=== PATIENT | male | born 1980 | race Caucasian/White ===

== ENCOUNTER 2021-08-14 10:36 | Emergency (ER) | payer OTHER, SELFPAY ==
--- NOTE | ~2021-08-14 | CT_ITS ---
EXAMINATION: CT ABDOMEN AND PELVIS WITH CONTRAST CLINICAL INFORMATION: Abdominal pain COMPARISON: CT abdomen pelvis 11/19/2018 TECHNIQUE: Multidetector volumetric images were obtained from the superior aspect of the liver through the pubic symphysis following administration 85 mL of Omnipaque 350 intravenous contrast. Sagittal and coronal reformatted images were obtained on the technologist's workstation. Oral contrast: No This CT examination was performed using dose optimization techniques as appropriate, variously including the following: *Automated exposure control *Adjustment of mA and/or kV according to patient size (this includes techniques or standardized protocols for targeted exams where dose is matched to indication/reason for exam; i.e. extremities or head) *Use of iterative reconstruction technique DLP: 779 mGy-cm FINDINGS: LUNG BASES: The visualized lung bases are unremarkable. LIVER, GALLBLADDER, AND BILIARY TREE: The liver is normal in size, shape, and attenuation. No focal hepatic lesion or biliary ductal dilatation is present. The gallbladder is unremarkable with no evidence of radiopaque gallstones, gallbladder wall thickening, or obvious pericholecystic inflammatory changes. PANCREAS: Unremarkable. SPLEEN: Unremarkable. ADRENAL GLANDS: Unremarkable. KIDNEYS AND URETERS: The kidneys are normal in size, shape, and attenuation. No hydronephrosis, hydroureter, or calculi seen. No perinephric stranding. BLADDER: Unremarkable. GASTROINTESTINAL TRACT: Diverticular changes are present in the colon. In the distal descending colon, there is some very subtle changes of inflammation surrounding the colon in an area of diverticular change with thickening of the lateral conal fascia and anterior pararenal fascia. These findings are suggestive of extremely subtle early uncomplicated diverticulitis. The small and large bowel are otherwise unremarkable. The appendix is unremarkable. ABDOMINAL WALL: No significant hernia is appreciated. LYMPH NODES: Normal. VASCULAR: Unremarkable. PELVIC VISCERA: Unremarkable. OSSEOUS STRUCTURES: Unremarkable. CT/CT abdomen pelvis w con IMPRESSION: Subtle changes of acute uncomplicated diverticulitis in the distal descending colon Fleischner guidelines were followed.
[2021-08-14 11:49] VITALS: BP 120/82; PULSE 91; RESP 18; TEMP 36.6; O2SAT 98; BMI 19.7
[2021-08-14 12:02] LABS: MANUAL DIFF FLAG NO
[2021-08-14 12:03] LABS: Basophils Absolute Auto 0.1 X10*3/uL (0.0-0.2); Basophils Percent Auto 0.5 % (0-2); Eosinophils Absolute Auto 0.2 X10*3/uL (0.0-0.4); Eosinophils Percent Auto 2.1 % (0-4); Hematocrit 42.4 % (42.0-52.0); Hemoglobin 14.2 g/dl (14.0-18.0); Imm Gran Abs Auto 0.02 X10*3/uL (0.00-0.03); Imm Gran Pct Auto 0.2 % (0.0-0.4); Lymphocytes Absolute Auto 2.6 X10*3/uL (1.2-4.9); Lymphocytes Percent Auto 23.4 % (20-40); Mean Corpuscular HGB Conc 33.5 g/dl (31.0-36.0); Mean Corpuscular Hemoglobin 30.9 pg (27.0-33.0); Mean Corpuscular Volume 92.4 fL (80.0-98.0); Mean Platelet Volume 9.4 fL (9.4-12.4); Monocytes Absolute Auto 0.8 X10*3/uL (0.1-1.2); Monocytes Percent Auto 7.4 % (2-11); Neutrophils Absolute Auto 7.2 x10*3/uL (2.0-8.3); Neutrophils Percent Auto 66.4 % (45-73); Platelet Count 275 X10*3/uL (160-400); Red Blood Count 4.59 X10*6/uL (4.60-5.80); Red Cell Distribution Width 13.9 % (11.0-16.0); White Blood Count 10.9 X10*3/uL (4.8-10.8)
[2021-08-14 12:05] LABS: Appearance Urine CLEAR; Color Urine YELLOW; Glucose Urine UA NEG (NEG); Leukocyte Esterase Urine NEG (NEG); Nitrite Urine NEG (NEG); Specific Gravity - Urine 1.025 (1.005-1.025); Urine Blood NEG (NEG); Urine Ketones NEG (NEG); Urine Protein TRACE MG/DL (NEG-TRACE)
[2021-08-14 12:19] LABS: Anion Gap 12 (12-20); Blood Urea Nitrogen 18 mg/dL (9-16); Calcium 9.3 mg/dL (8.4-10.2); Carbon Dioxide 25 mmol/L (22-29); Chloride 104 mmol/L (96-108); Creatinine Clr Calc Pharmacy 72.1; Estimated Glomerular Filt Rate 57; Glucose Random 133 mg/dL (60-115); Potassium 4.2 mmol/L (3.3-5.1); Sodium 137 mmol/L (135-145)
--- NOTE | 2021-08-14 15:09 | ED.ABDPAIN ---
HPI - Abdominal Pain General Chief Complaint: Abdominal Pain Stated Complaint: Abd pain Time Seen by Provider: 08/14/21 15:01 Source: patient Mode of arrival: ambulatory Limitations: no limitations History of Present Illness HPI narrative: Patient is a 40 year old male presenting to the emergency department today with abdominal pain. Patient states that he was lifting lumbar yesterday at work and afterwards, felt a sharp pain in his lower leg abdomen. Patient denies any dizziness, lightheadedness, nausea, vomiting, fever, chills, blurry vision, double vision, loss of vision, chest pain, difficulty breathing, shortness of breath, night sweats, pain with urination, increased urinary frequency, increased urinary urgency, blood in his urine or stool, syncope or a near syncopal episode, recent trauma or falls, bowel incontinence, bladder incontinence, bowel retention, bladder retention, or any other complaints at this time. MD elicited complaint: abdominal pain Pertinent past history: none Related Data Previous Rx's Medication Instructions Recorded ciprofloxacin HCl 500 mg tablet 500 mg PO BID 7 Days #14 tab 08/14/21 metronidazole 500 mg tablet 500 mg PO TID 7 Days #21 tab 08/14/21 Allergies Allergy/AdvReac Type Severity Reaction Status Date / Time Penicillins [PENICILLINS] Allergy Unknown HIVES Unverified 02/24/20 15:18 Penicillin Allergy Unknown Uncoded 01/29/12 00:00 Tylenol Allergy Unknown Uncoded 01/29/12 00:00 Review of Systems Constitutional: Reports no additional constitutional complaints, Denies chills, Denies fever(s) and Denies night sweats Eyes: Reports no additional eye complaints, Denies blurry vision, Denies change in vision, Denies diplopia, Denies eye discharge, Denies loss of vision and Denies eye pain Denies dizziness Cardiovascular: Reports no additional cardiovascular complaints, Denies chest pain, Denies lightheadedness, Denies Loss of Consciousness and Denies dyspnea Respiratory: Reports no additional respiratory complaints and Denies dyspnea Gastrointestinal: Reports no additional gastrointestinal complaints, Reports abdominal pain, Denies melena, Denies hematochezia, Denies change in bowel habits and Denies change in stool character Genitourinary: Reports no additional male genitourinary complaints, Denies hematuria, Denies oliguria, Denies difficulty urinating, Denies dysuria, Denies urinary frequency, Denies urinary hesitancy, Denies urinary incontinence and Denies urinary urgency Musculoskeletal: Reports no additional musculoskeletal complaints, Denies numbness and Denies tingling Denies dizziness, Denies loss of vision, Denies numbness and Denies tingling Psychiatric: Reports no additional psychiatric complaints Endocrine: Reports no additional endocrine complaints Hematologic/Lymphatic: Reports no additional hematologic/lymphatic complaints Allergic/Immunologic: Reports no additional allergic/immunologic complaints [facility] Past Medical History Attestation statement: The following information was validated with the patient. Source: old records reviewed Social History Social History Advance Directives: No Advance Directives Information Provided: No Physical Exam ED Vital Signs: Vital Signs - 24 hr 08/14/21 11:49 08/14/21 16:53 Temperature 97.9 F 98.2 F Pulse Rate 91 80 Respiratory Rate 18 16 Blood Pressure 120/82 138/80 Pulse Oximetry 98 97 BMI result Body Mass Index 19.7 Const General: cooperative, no acute distress, alert and awake Nutritional Appearance: well nourished Orientation/consciousness: patient oriented x3 Limitations: no limitations HENMT Head: Yes normal to inspection and Yes atraumatic Ears: hearing grossly normal bilaterally and external ears normal General nose exam: Normal external nose present, no nasal discharge noted and no epistaxis Face and sinus: Yes normal facial exam, No abrasion and No laceration Mouth: Normal oral and palatal mucosa present, no drooling and no muffled voice Eyes General: appearance normal, both eyes and all related structures Periorbital: periorbital findings normal Eyelids: Yes eyelids normal Conjunctivae: conjunctivae normal Pupils: Equal, round and reactive pupils present EOM: EOMs intact bilaterally Neck Neck: Yes normal visual inspection, Yes full ROM and Yes no lymphadenopathy Chest Chest palpation & inspection: normal inspection of the chest Resp Effort & Inspection: normal respiratory effort and able to speak in complete sentences Auscultation: clear to auscultation bilaterally Cardio Rate: regular rate Rhythm: regular rhythm GI Inspection: Yes normal to inspection Palpation (GI): Soft to palpation, not firm, Tenderness to palpation present (GI) in the RLQ, no guarding and not rigid Auscultation: normal bowel sounds Neuro General: patient oriented x3 and moves all extremities Cranial nerves: Yes Equal, round and reactive pupils present Cognition (Neuro): normal cognition Motor exam (neuro): 5/5 motor strength present throughout Sensory Exam: Normal double simultaneous stimulation for sensation Coordination: [id number] test normal Extrem General: Yes normal to inspection, Yes full ROM and Yes capillary refill normal Psych Appearance: grossly normal Mental Status: mental status grossly normal Affect: normal affect Attitude: cooperative Thought process: Normal thought process present Thought content: Normal thought content present Insight: Good insight present (Psych) MDM - Abdominal Pain MDM Narrative Medical decision making narrative: Patient is a 40 year old male presenting to the emergency department today with abdominal pain. Patient's physical exam showed tenderness to palpation of the left lower abdominal quadrant with no firmness or rigidity. Patient's blood work showed a slightly elevated white blood cell count but was otherwise unremarkable. Patient's urine showed no acute process. Patient's abdominal CT showed uncomplicated diverticulitis. I explained my physical exam findings as well as all test results to the patient. I answered all questions asked by the patient. Patient received IV Morphine and Zofran which he stated helped his symptoms significantly. I stressed the importance of the patient taking his medication as prescribed. I stressed the importance of the patient following up with his primary care provider and a GI specialist. I stressed the importance of the patient returning to the emergency department immediately if his symptoms were to worsen or if he were to develop any dizziness, shortness of breath, difficulty breathing, chest pain, blurry vision, loss of vision, nausea, vomiting, abdominal pain, fever, chills, back pain, or any other complaints. Patient verbalized agreement and understanding with this treatment plan and discharge. Differential Diagnosis Differential diagnosis: Likely abdominal pain, diverticulitis and gastroenteritis Medical Records Attestation: I reviewed the patient's medical records. Lab Data Attestation: I reviewed the patient's lab results. Result diagrams: 08/14/21 11:57 08/14/21 11:57 Labs: Lab Results 08/14/21 08/14/21 08/14/21 Range/Units 11:57 11:57 12:00 WBC 10.9 H (4.8-10.8) X10*3/uL RBC 4.59 L (4.60-5.80) X10*6/uL Hgb 14.2 (14.0-18.0) g/dl Hct 42.4 (42.0-52.0) % MCV 92.4 (80.0-98.0) fL MCH 30.9 (27.0-33.0) pg MCHC 33.5 (31.0-36.0) g/dl RDW 13.9 (11.0-16.0) % Plt Count 275 (160-400) X10*3/uL MPV 9.4 (9.4-12.4) fL Immature Gran % (Auto) 0.2 (0.0-0.4) % Neut % (Auto) 66.4 (45-73) % Lymph % (Auto) 23.4 (20-40) % [place] % (Auto) 7.4 (2-11) % Eos % (Auto) 2.1 (0-4) % Baso % (Auto) 0.5 (0-2) % Lymph # (Auto) 2.6 (1.2-4.9) X10*3/uL [place] # (Auto) 0.8 (0.1-1.2) X10*3/uL Eos # (Auto) 0.2 (0.0-0.4) X10*3/uL Baso # (Auto) 0.1 (0.0-0.2) X10*3/uL Abs Immat Gran (auto) 0.02 (0.00-0.03) X10*3/uL Absolute Neuts (auto) 7.2 (2.0-8.3) x10*3/uL Absolute Nucleated RBC 0.000 (0.0-0.012) X10*3/uL Nucleated RBC % (auto) 0.0 (0.0-0.2) /100WBC Sodium 137 (135-145) mmol/L Potassium 4.2 (3.3-5.1) mmol/L Chloride 104 (96-108) mmol/L Carbon Dioxide 25 (22-29) mmol/L Anion Gap 12 (12-20) BUN 18 H (9-16) mg/dL Creatinine 1.38 (0.5-1.4) mg/dL Estim Creat Clear Calc 72.1 Estimated GFR 57 Random Glucose 133 H (60-115) mg/dL Calcium 9.3 (8.4-10.2) mg/dL Urine Color YELLOW Urine Appearance CLEAR Urine pH 6.0 (5.0-8.0) Ur Specific [place] 1.025 (1.005-1.025) Urine Protein TRACE (NEG-TRACE) MG/DL Urine Glucose (UA) NEG (NEG) MG/DL Urine Ketones NEG (NEG) MG/DL Urine Blood NEG (NEG) Urine Nitrite NEG (NEG) Ur Leukocyte Esterase NEG (NEG) Imaging Data CT scan - abdomen: Attestation: I personally reviewed and interpreted this imaging study as follows: Radiologist's impression: EXAMINATION: CT ABDOMEN AND PELVIS WITH CONTRAST? CLINICAL INFORMATION: Abdominal pain? COMPARISON: CT abdomen pelvis 11/19/2018? TECHNIQUE: Multidetector volumetric images were obtained from the superior aspect of the liver through the pubic symphysis following administration 85 mL of Omnipaque 350 intravenous contrast. Sagittal and coronal reformatted images were obtained on the technologist's workstation.? Oral contrast: No This CT examination was performed using dose optimization techniques as appropriate, variously including the following: *Automated exposure control *Adjustment of mA and/or kV according to patient size (this includes techniques or standardized protocols for targeted exams where dose is matched to indication/reason for exam; i.e. extremities or head) *Use of iterative reconstruction technique DLP: 779 mGy-cm FINDINGS: LUNG BASES: The visualized lung bases are unremarkable.? LIVER, GALLBLADDER, AND BILIARY TREE: The liver is normal in size, shape, and attenuation. No focal hepatic lesion or biliary ductal dilatation is present. The gallbladder is unremarkable with no evidence of radiopaque gallstones, gallbladder wall thickening, or obvious pericholecystic inflammatory changes.? PANCREAS: Unremarkable.? SPLEEN: Unremarkable.? ADRENAL GLANDS: Unremarkable.? KIDNEYS AND URETERS: The kidneys are normal in size, shape, and attenuation. No hydronephrosis, hydroureter, or calculi seen. No perinephric stranding. ? BLADDER: Unremarkable.? GASTROINTESTINAL TRACT: Diverticular changes are present in the colon. In the distal descending colon, there is some very subtle changes of inflammation surrounding the colon in an area of diverticular change with thickening of the lateral conal fascia and anterior pararenal fascia. These findings are suggestive of extremely subtle early uncomplicated diverticulitis. The small and large bowel are otherwise unremarkable. The appendix is unremarkable.? ABDOMINAL WALL: No significant hernia is appreciated.? LYMPH NODES: Normal. VASCULAR: Unremarkable. PELVIC VISCERA: Unremarkable.? OSSEOUS STRUCTURES: Unremarkable.? CT/CT abdomen pelvis w con IMPRESSION: Subtle changes of acute uncomplicated diverticulitis in the distal descending colon? ? Fleischner guidelines were followed. Dictated By: JONNIE ALONSO MD Signed By: Electronically signed by JONNIE ALONSO MD 08/14/21 [id number] Discharge Plan Discharge Clinical Impression: Diverticulitis Patient Disposition: Home, Self-Care Instructions: Diverticulitis (ED), Diverticulitis Diet (ED) Additional Instructions: You received Morphine while in the Emergency Department today on 08/14/2021 to help control the pain associated with your diverticulitis. Follow up with your primary care provider. Return to the emergency department immediately if your symptoms worsen or if you develop any dizziness, shortness of breath, difficulty breathing, chest pain, blurry vision, loss of vision, nausea, vomiting, abdominal pain, fever, chills, back pain, or any other complaints. Prescriptions: New metronidazole 500 mg tablet 500 mg PO TID 7 Days Qty: 21 0RF ciprofloxacin HCl 500 mg tablet 500 mg PO BID 7 Days Qty: 14 0RF Referrals: Flo Rogers MD [Physician] - 2 days Stand Alone Forms: Work/School Release Interventions: ED Discharge Assessment Last Done: 08/14/21 19:04 Discharge Date/Time: 08/14/21 19:06 Print Language: Italian
[2021-08-14] MEDS: iohexoL 350 MG/ML 100 ML INFUS..BTL IV (16:37)
[2021-08-14 16:53] VITALS: BP 138/80; PULSE 80; RESP 16; TEMP 36.8; O2SAT 97
[2021-08-14] MEDS: ondansetron HCL 4 MG/2 ML VIAL IVPUSH (18:11)
[2021-08-14] MEDS: Morphine Sulfate 4 MG/ML CARTRIDGE IVPUSH (18:11)
== END 2021-08-14 19:06 | disposition home or self-care (01) ==
PROVIDERS: Emergency Provider Emergency Medicine Emergency Medical Services
DX: K57.32 Diverticulitis of large intestine without perforation or abscess without bleeding (principal)
CPT/HCPCS: 36415; 74177; 80048; 81003; 85025; 96374; 96375; 99284; J2270; J2405; Q9967

== ENCOUNTER 2023-04-01 23:51 | Emergency (ER) | payer OTHER, SELFPAY ==
--- NOTE | ~2023-04-01 | XR_ITS ---
EXAMINATION: XR HAND, LEFT CLINICAL INFORMATION: Crush injury to thumb COMPARISON: Left hand 11/20/2018 TECHNIQUE: PA, lateral, and oblique views of the left hand. FINDINGS: A fracture is present through the mid diaphysis of the proximal phalanx of the thumb with minimal fracture fragment displacement. The bones and soft tissues are otherwise normal. No additional fracture. Alignment is anatomic. Joint spaces are maintained. No erosions or soft tissue calcifications. XR/XR hand LT min 3V IMPRESSION: Fracture proximal phalanx of the thumb.
[2023-04-02 00:05] VITALS: BP 132/90; PULSE 100; RESP 18; TEMP 36.8; O2SAT 98; BMI 30.4
[2023-04-02] MEDS: Ibuprofen 800 MG TABLET PO (03:47)
[2023-04-02 03:59] VITALS: BP 135/72; PULSE 98; RESP 18; O2SAT 98
--- NOTE | 2023-04-02 04:30 | ED_ITS ---
HPI - Extremity Problem General Chief complaint: Extremity Injury, Upper Stated complaint: Thumb Lac Time Seen by Provider: 04/02/23 03:42 Source: patient Mode of arrival: ambulatory History of Present Illness HPI Narrative: 42M p/w injured LEFT thumb after attempting to drop a transmission , states tDap is up to date. Related Data Previous Rx's Medication Instructions Recorded ciprofloxacin HCl 500 mg tablet 500 mg PO BID 7 days #14 tabs 08/14/21 metronidazole 500 mg tablet 500 mg PO TID 7 days #21 tabs 08/14/21 sulfamethoxazole 800 1 tab PO BID 5 days #10 tabs 04/02/23 mg-trimethoprim 160 mg tablet (Bactrim DS) Allergies Allergy/AdvReac Type Severity Reaction Status Date / Time Penicillins [PENICILLINS] Allergy Unknown HIVES Verified 04/02/23 05:16 Penicillin Allergy Unknown Hives Uncoded 04/02/23 05:16 Tylenol Allergy Unknown Anaphylaxis Uncoded 04/02/23 05:16 Review of Systems Review of Systems: No positives and negatives as stated in HPI PMFSH Past Medical History Source: nursing notes reviewed Physical Exam Vital Signs: Vital Signs: Last Vital Signs Temp 98.2 F 04/02/23 00:05 Pulse 98 04/02/23 03:59 Resp 18 04/02/23 03:59 BP 135/72 04/02/23 03:59 Pulse Ox 98 04/02/23 03:59 O2 Del Method Room Air 04/02/23 03:59 BMI result Body Mass Index 30.4 VITAL SIGNS: Reviewed. GENERAL: Well developed, well nourished, in no acute distress. HEAD: Normocephalic/atraumatic EYES: PERRLA, EOMI LUNGS: Normal breath sounds. No adventitious sounds or accessory muscle use. SpO2<98> CARDIOVASCULAR: Regular rate and rhythm without noted murmurs ABDOMEN: Soft, non-tender, non-distended with bowel sounds. MUSCULOSKELETAL: No tenderness, deformities, or effusions noted on gross inspection. EXTREMITIES: No cyanosis, clubbing or edema. LEFT THUMB: Mild swelling, due to pain unable to evaluate for tendinous injury, capillary refill less than 2 seconds there is a small 1.5 cm laceration to the dorsum SKIN: Inspection of the skin reveals no rashes NEUROLOGIC: Alert and oriented x 4. Strength and sensation to light touch were grossly intact x 4. Medications Administered Discontinued Medications Generic Name Dose Route Start Last Admin Trade Name Sagar PRN Reason Stop Dose Admin Ibuprofen 800 mg 04/02/23 03:41 04/02/23 03:47 Ibuprofen 800 Mg Tablet PO 04/02/23 03:42 800 mg ONCE ONE Administration Lidocaine HCl 5 ml 04/02/23 06:19 04/02/23 06:54 Lidocaine Hcl 1 % Mpf 5 Ml Vial INFILTRATI 04/02/23 06:20 5 ml ONCE ONE Administration Trimethoprim/Sulfamethoxazole 1 tab 04/02/23 07:07 04/02/23 07:20 Sulfamethox/Trimeth 800/160 Tablet PO 04/02/23 07:08 Not Given ONCE ONE Medical Decision Making Medical Decision Making MDM Narrative: 42-year-old male with history and clinical presentation of left thumb injury after dropping a transmission on it on review of x-rays patient has a comminuted fracture of the phalanx and was given Motrin as well as the placement of a digital block for comfort and started on antibiotics. The laceration was then Steri stripped and patient was placed in a thumb spica and given a referral to follow-up with the hand surgeon. Differential Diagnosis Differential Diagnoses: The differential diagnosis associated with the p resentation includes Please see the discussion above Admission/Observation Consideration of admission/observation: Escalation of care including admission/observation considered Please see the discussion above Radiology Impression Discussion of test interpretation with radiology: I have reviewed the radiologist's reading. Radiologist Impression: Please see the discussion above Discharge Plan Discharge Clinical Impression: Fracture of phalanx of left thumb Patient Disposition: Home, Self-Care Instructions: Thumb Fracture (ED) Additional Instructions: 1. Recommend [id number] Tylenol/ibuprofen as needed for pain control. 2. Complete the course of antibiotics as prescribed. 3. Please call the orthopedic surgeon, the referral is located below. 4. Follow-up with your primary care doctor and keep your splint in place until you are evaluated by the auto adjudication specialist. Return to the ER for any worsening symptoms. Prescriptions: New sulfamethoxazole-trimethoprim [Bactrim DS] 800-160 mg tablet 1 tab PO BID 5 Days Qty: 10 0RF No Action metronidazole 500 mg tablet 500 mg PO TID 7 Days Qty: 21 0RF ciprofloxacin HCl 500 mg tablet 500 mg PO BID 7 Days Qty: 14 0RF Referrals: Ruth Keys MD [Physician] - Interventions: ED Discharge Assessment Last Done: 04/02/23 07:21 Discharge Date/Time: 04/02/23 07:22
[2023-04-02] MEDS: Lidocaine HCl 1 % MPF 5 ML VIAL INFILTRATI (06:54)
== END 2023-04-02 07:22 | disposition home or self-care (01) ==
PROVIDERS: Emergency Provider Student in an Organized Health Care Education/Training Program
DX: S62.512A Displaced fracture of proximal phalanx of left thumb, initial encounter for closed fracture (principal); W24.1XXA Contact with transmission devices, not elsewhere classified, initial encounter; Y93.89 Activity, other specified; Y92.9 Unspecified place or not applicable; Y99.9 Unspecified external cause status
CPT/HCPCS: 29130; 64450; 73130; 99284

== ENCOUNTER 2023-04-07 08:26 | Outpatient (AMB) | payer OTHER, SELFPAY ==
[2023-04-07 08:30] VITALS: BMI 30.7
--- NOTE | 2023-04-07 08:30 | MHC.OFFVIS ---
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 Patient reports that he was working on his car and he dropped a transmission on his thumb. He states that his pain level is at a 9/10. Patient is experiencing numbness that goes down to his wrist. 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 The patient presented to the ED on 04/02/2023 status post hurting his thumb when he was attempting to drop a transmission , per the ED note. X-rays of the left hand were obtained. He was placed in a splint and prescribed sulfamethoxazole-trimethoprim [Bactrim DS] 800-160 mg PO BID. While in the office today the patient reports his pain is a 9/10. He confirms numbness that radiates to his wrist. PENDING SALE TO [facility] Social History (Updated 04/07/23 @ 08:49 by Dagoberto Rodgers) Alcohol intake: never Patient Tobacco Use Status: Current everyday Tobacco user Current occupational status: unemployed Current occupation: right hand dominant Review of Systems Const All systems reviewed & are unremarkable except as noted in HPI and below Physical Exam Vital Signs: BMI result Body Mass Index 30.7 Const General: cooperative and no acute distress Orientation/consciousness: patient oriented x3 Resp Effort & Inspection: normal respiratory effort and able to speak in complete sentences Cardio Peripheral pulses: Peripheral pulses 2+ throughout Skin General skin exam: no rashes or lesions noted Neuro General: patient oriented x3 Extrem Other: Left thumb: Laceration over the volar aspect of the proximal phalanx. No surrounding erythema or drainage. No signs of infection. Is able to slightly flex and extend at the IP joint but is limited due to pain. Reports some numbness and tingling over the finger pad. Full sensation along the radial digital and ulnar digital nerve. Capillary refill is brisk. Reports tenderness sensation along the first dorsal compartment. Nonspecific for snuff box tenderness. Office Procedures Casting/Splints 96175-Atcl/Wrist Cast Application Procedure code (CPT) selection complete Fracture Care Fracture Billing Code: Fracture Billing Code Assessment & Plan Assessment & Plan (1) Fracture of proximal phalanx of left thumb: Code(s): S62.512A - Displaced fracture of proximal phalanx of left thumb, initial encounter for closed fracture Qualifiers: Encounter type: initial encounter Fracture alignment: nondisplaced Fracture type: open Qualified Code(s): S62.515B - Nondisplaced fracture of proximal phalanx of left thumb, initial encounter for open fracture (2) Laceration of left thumb: Code(s): S61.012A - Laceration without foreign body of left thumb without damage to nail, initial encounter Qualifiers: Damage to nail status: unspecified Encounter type: initial encounter Foreign body presence: unspecified Qualified Code(s): S61.012A - Laceration without foreign body of left thumb without damage to nail, initial encounter Plan Mr. Wen is a 42-year-old right hand dominant male who presents in the office today, as a new patient, for an evaluation of left thumb pain. The patient presented to the ED on 04/02/2023 status post hurting his thumb when he was attempting to drop a transmission , per the ED note. X-rays of the left hand were obtained. He was placed in a splint and prescribed sulfamethoxazole-trimethoprim [Bactrim DS] 800-160 mg PO BID. While in the office today the patient reports his pain is a 9/10. He confirms numbness that radiates to his wrist. The patient will be placed in a thumb spica cast, custom made, while in the office today. No lifting anything greater than a coffee cup or cell phone. The patient was given 5 days of antibiotics, which he will continue to take. I explained to him that ht is would be classified as an open fracture due to where the laceration site is located, which is over the fracture. He understands and will continue to take his antibiotics until his course is complete. He was educated on signs of infection, which are as follows but not limited to erythema, edema, drainage, or warmth. If he is to experience any of these symptoms he is to contact the office immediately or present to the ED. Follow up will be in 4 weeks with repeat x-rays, or sooner if needed. X-rays of the left hand obtained while in the office today and reviewed by me, Cindy Ayon PA-C, revealed left proximal phalanx fracture of the left thumb. X-rays of the left hand, obtained on 04/02/2023, revealed: Fracture proximal phalanx of the thumb. Orders: Orders XR hand LT min 3V Today M79.643 - Pain in unspecified hand Patient Instructions: Scribed for Cindy Ayon PA-C by Arabella Pang medical file clerk, on 04/07/2023 at 8:24 am, EST. Coding Level of Care Code New Pt Level 4 (26424) Diagnoses Open nondisplaced fracture of proximal phalanx of left thumb, initial encounter S62.515B Encounter type: initial encounter Fracture alignment: nondisplaced Fracture type: open Laceration of left thumb, foreign body presence unspecified, nail damage status unspecified, initial encounter S61.012A Damage to nail status: unspecified Encounter type: initial encounter Foreign body presence: unspecified CPT Codes Casting - CPT: 20154-Uwgc/Wrist Cast Application ([id number]) Fracture Care - Fracture Billing Code: Fracture Billing Code ([id number])
== END 2023-04-07 09:29 | disposition home or self-care (01) ==
PROVIDERS: Visit Provider Physician Assistant
DX: S62.515B Nondisplaced fracture of proximal phalanx of left thumb, initial encounter for open fracture (principal)
CPT/HCPCS: 26720; 99204

== ENCOUNTER 2023-04-07 12:00 | Outpatient (REF) | payer OTHER, SELFPAY ==
--- NOTE | ~2023-04-07 | XR_ITS ---
EXAMINATION: XR HAND, LEFT CLINICAL INFORMATION: Pain COMPARISON: None available. TECHNIQUE: PA, lateral, and oblique views of the left hand. FINDINGS: Nondisplaced comminuted fracture mid shaft of the first proximal phalanx. Alignment and articulations are maintained. Diffuse soft tissue swelling of the thumb. XR/XR hand LT min 3V IMPRESSION: Fractured thumb. Thumb
== END 2023-04-07 12:01 | disposition home or self-care (01) ==
LOC: HO.HOSX 12:00
PROVIDERS: Visit Provider Physician Assistant
DX: S62.512B Displaced fracture of proximal phalanx of left thumb, initial encounter for open fracture (principal); W20.8XXA Other cause of strike by thrown, projected or falling object, initial encounter; Y93.9 Activity, unspecified; Y92.9 Unspecified place or not applicable; Y99.9 Unspecified external cause status; Z79.2 Long term (current) use of antibiotics
CPT/HCPCS: 26720; 73130; 99202

== ENCOUNTER 2023-05-06 10:39 | Outpatient (REF) | payer SELFPAY | END 2023-05-06 10:40 | disposition home or self-care (01) | LOC: HO.HOSX 10:39 | PROVIDERS: Visit Provider Physician Assistant | DX: Z13.89 Encounter for screening for other disorder (principal) ==

== ENCOUNTER 2025-04-02 15:51 | Emergency (ER) | payer OTHER, SELFPAY ==
--- NOTE | ~2025-04-02 | US_ITS ---
CLINICAL HISTORY: RUQ epigstric pain, N v US limited to right upper quadrant Comparison: None Findings: Liver is mildly enlarged and reveals increased echogenicity, compatible with steatosis. No focal hepatic lesions. No intrahepatic ductal dilatation. Right lobe length measures 17.4 cm. Portal vein reveals hepatopetal flow. Common bile duct measures 4 mm. Gallbladder is nondistended and limited evaluation. There may be some debris or sludge within the gallbladder. No definable shadowing stones or wall thickening. No pericholecystic fluid. No sonographic Chacon's sign. Right kidney is normal texture. No hydronephrosis. Right renal length is 11.7 cm. Impression: 1. Mild hepatomegaly with evidence of hepatic steatosis. 2. Limited evaluation of the nondistended gallbladder. There may be some gallbladder sludge. Otherwise, no shadowing stones or sonographic evidence of cholecystitis. This document has been electronically signed by: Lino Briscoe MD on 04/02/2025 17:56:46
--- NOTE | ~2025-04-02 | CT_ITS ---
CLINICAL HISTORY: right sided abd pain CT abdomen and pelvis with contrast Comparison: Same day abdominal ultrasound. Findings: Small hiatal hernia. Atelectasis. Hepatomegaly with steatosis. Severely contracted gallbladder with possible tiny gallstones near the neck of the gallbladder. Thickening of the adrenal glands, nonspecific. Lobulated renal contours with [id number] multifocal parenchymal defects. No hydronephrosis or urolithiasis. Low-density geographic region of the gallbladder fossa may reflect focal fatty deposition. No bowel obstruction, pneumoperitoneum, or pneumatosis. Prominent inguinal nodes, may be reactive. Scattered colonic diverticulosis without diverticulitis or colitis. Normal appendix. Circumferential bladder wall thickening. Osteopenia. Focal spondylosis at L5-S1. Grade 1 anterolisthesis at L4-L5. IMPRESSION: 1. Circumferential bladder wall thickening may be related to degree of underdistention or mild cystitis. 2. Additional findings as described. This document has been electronically signed by: Toribio Correia MD on 04/02/2025 21:50:25
[2025-04-02 16:19] VITALS: BP 135/94; PULSE 113; RESP 16; TEMP 36.8; O2SAT 98; BMI 29.4
--- NOTE | 2025-04-02 16:19 | ED.ABDPAIN ---
HPI - Abdominal Pain General Chief Complaint: Nausea/Vomiting/Diarrhea Stated Complaint: food poisoning? vomiting Time Seen by Provider: 04/02/25 19:20 Related Data Previous Rx's ?Medication ?Instructions ?Recorded ciprofloxacin HCl 500 mg tablet 500 mg PO BID 7 days #14 tabs 08/14/21 metronidazole 500 mg tablet 500 mg PO TID 7 days #21 tabs 08/14/21 sulfamethoxazole 800 1 tab PO BID 5 days #10 tabs 04/02/23 mg-trimethoprim 160 mg tablet (Bactrim DS) ondansetron 4 mg disintegrating 4 mg PO TID PRN nausea and 04/02/25 tablet vomiting 5 days #10 tabs pantoprazole 40 mg tablet,delayed 40 mg PO DAILY #14 tabs 04/02/25 release (Protonix) Allergies Allergy/AdvReac Type Severity Reaction Status Date / Time Penicillins (PENICILLINS) Allergy Unknown HIVES Verified 04/02/25 16:22 Penicillin Allergy Unknown Hives Uncoded 04/02/23 05:16 Tylenol Allergy Unknown Anaphylaxis Uncoded 04/02/23 05:16 [facility] Social History Social History (Updated 04/07/23 @ 08:49 by Dagoberto Rodgers) Alcohol intake: current Alcohol intake frequency: a few times a month Patient Tobacco Use Status: Current everyday Tobacco user Smoked in Last 30 Days: Yes Use of substances other than those prescribed or required for medical reasons: Yes Substance Use Type: Marijuana Substance Use Frequency: Daily Any prior treatment program specific to substance use: No Advance Directives: No Advance Directives Information Provided: Yes Do you have a plan to hurt others: No Plan Current occupational status: unemployed Current occupation: right hand dominant Physical Exam ED Vital Signs: Vital Signs - 24 hr 04/02/25 16:19 04/02/25 19:03 Temperature 98.3 F 98.3 F Pulse Rate 113 H 96 Respiratory Rate 16 20 Blood Pressure 135/94 H 123/87 Pulse Oximetry 98 96 Oxygen Delivery Method Room Air Room Air BMI result Body Mass Index 29.4 Course Course Course Narrative: This is a Rapid Medical Exam performed in triage by Ranjana Mar PA-C. Full HPI, ROS and PE to be performed by primary ED provider. 44 yo M presenting to the ED c/o suspected food poisoning with abdominal pain radiating to the chest, N/V and diarrhea s/p eating pork that was leftover in the fridge for 3 days. PE: Nontoxic appearing, uncomfortable, abd soft w/epigastric & RUQ ttp Plan: labs, UA, US, Zofran given in triage Medical Decision Making Lab Data 04/02/25 16:49 04/02/25 16:49 Labs: Lab Results 04/02/25 04/02/25 04/02/25 Range/Units 16:49 16:50 16:52 WBC 20.4 H (4.8-10.8) X10*3/uL RBC 5.50 (4.60-5.80) X10*6/uL Hgb 16.8 (14.0-18.0) g/dl Hct 48.1 (42.0-52.0) % MCV 87.5 (80.0-98.0) fL MCH 30.5 (27.0-33.0) pg MCHC 34.9 (31.0-36.0) g/dl RDW 13.0 (11.0-16.0) % Plt Count 312 (160-400) X10*3/uL MPV 9.5 (9.4-12.4) fL Immature Gran % (Auto) 0.4 (0.0-0.4) % Neut % (Auto) 83.9 H (45-73) % Lymph % (Auto) 8.4 L (20-40) % [place] % (Auto) 7.2 (2-11) % Eos % (Auto) 0.0 (0-4) % Baso % (Auto) 0.1 (0-2) % Lymph # (Auto) 1.7 (1.2-4.9) X10*3/uL [place] # (Auto) 1.5 H (0.1-1.2) X10*3/uL Eos # (Auto) 0.0 (0.0-0.4) X10*3/uL Baso # (Auto) 0.0 (0.0-0.2) X10*3/uL Abs Immat Gran (auto) 0.09 H (0.00-0.03) X10*3/uL Absolute Neuts (auto) 17.1 H (2.0-8.3) x10*3/uL Absolute Nucleated RBC 0.000 (0.0-0.012) X10*3/uL Nucleated RBC % (auto) 0.0 (0.0-0.2) /100WBC Sodium 139 (135-145) mmol/L Potassium 3.3 (3.3-5.1) mmol/L Chloride 93 L (96-108) mmol/L Carbon Dioxide 31 H (22-29) mmol/L Anion Gap 18 (12-20) BUN 14 (9-16) mg/dL Creatinine 1.12 (0.5-1.4) mg/dL Estim Creat Clear Calc 111.1 Estimated GFR > 60 Random Glucose 136 H (60-115) mg/dL Calcium 9.8 (8.4-10.2) mg/dL Magnesium 2.2 (1.6-2.6) mg/dL Total Bilirubin 0.7 (0.0-1.0) mg/dL Direct Bilirubin 0.2 (0.0-0.5) mg/dL AST 39 H (5-37) U/L ALT 51 H (0-40) U/L Alkaline Phosphatase 87 (39-117) U/L Troponin I High Sens < 2.7 (<3.5-35.0) ng/L Total Protein 8.8 H (6.5-8.0) g/dL Albumin 5.3 H (3.5-5.0) g/dL Lipase 19 (8-78) U/L Urine Color Yellow Urine Appearance Clear Urine pH >= 9.0 (5.0-9.0) Ur Specific [place] >= 1.030 H (1.005-1.025) Urine Protein >=1000 (4+) H (Neg-Trace) mg/dL Urine Glucose (UA) Negative (Negative) mg/dL Urine Ketones Negative (Negative) mg/dL Urine Blood Negative (Negative) Urine Nitrite Negative (Negative) Ur Leukocyte Esterase Trace H (Negative) Urine RBC 0-2 (0-2) /HPF Urine WBC 0-5 (0-5) /HPF Ur Squamous Epith Cells 0-2 (0-2) /HPF Urine Bacteria None Seen (None Seen) Hyaline Casts 0-2 (0-2) /LPF Stool Occult Blood (NEGATIVE) COVID-19 (FOREST) Negative (Negative) COVID-19 Clin Com See Note Influenza Type A (CHASE) Negative (Negative) Influenza Type B (CHASE) Negative (Negative) Influenza A & B Note See Note 04/02/25 Range/Units 20:06 WBC (4.8-10.8) X10*3/uL RBC (4.60-5.80) X10*6/uL Hgb (14.0-18.0) g/dl Hct (42.0-52.0) % MCV (80.0-98.0) fL MCH (27.0-33.0) pg MCHC (31.0-36.0) g/dl RDW (11.0-16.0) % Plt Count (160-400) X10*3/uL MPV (9.4-12.4) fL Immature Gran % (Auto) (0.0-0.4) % Neut % (Auto) (45-73) % Lymph % (Auto) (20-40) % [place] % (Auto) (2-11) % Eos % (Auto) (0-4) % Baso % (Auto) (0-2) % Lymph # (Auto) (1.2-4.9) X10*3/uL [place] # (Auto) (0.1-1.2) X10*3/uL Eos # (Auto) (0.0-0.4) X10*3/uL Baso # (Auto) (0.0-0.2) X10*3/uL Abs Immat Gran (auto) (0.00-0.03) X10*3/uL Absolute Neuts (auto) (2.0-8.3) x10*3/uL Absolute Nucleated RBC (0.0-0.012) X10*3/uL Nucleated RBC % (auto) (0.0-0.2) /100WBC Sodium (135-145) mmol/L Potassium (3.3-5.1) mmol/L Chloride (96-108) mmol/L Carbon Dioxide (22-29) mmol/L Anion Gap (12-20) BUN (9-16) mg/dL Creatinine (0.5-1.4) mg/dL Estim Creat Clear Calc Estimated GFR Random Glucose (60-115) mg/dL Calcium (8.4-10.2) mg/dL Magnesium (1.6-2.6) mg/dL Total Bilirubin (0.0-1.0) mg/dL Direct Bilirubin (0.0-0.5) mg/dL AST (5-37) U/L ALT (0-40) U/L Alkaline Phosphatase (39-117) U/L Troponin I High Sens (<3.5-35.0) ng/L Total Protein (6.5-8.0) g/dL Albumin (3.5-5.0) g/dL Lipase (8-78) U/L Urine Color Urine Appearance Urine pH (5.0-9.0) Ur Specific [place] (1.005-1.025) Urine Protein (Neg-Trace) mg/dL Urine Glucose (UA) (Negative) mg/dL Urine Ketones (Negative) mg/dL Urine Blood (Negative) Urine Nitrite (Negative) Ur Leukocyte Esterase (Negative) Urine RBC (0-2) /HPF Urine WBC (0-5) /HPF Ur Squamous Epith Cells (0-2) /HPF Urine Bacteria (None Seen) Hyaline Casts (0-2) /LPF Stool Occult Blood POSITIVE (NEGATIVE) COVID-19 ([facility]) (Negative) COVID-19 Clin Com Influenza Type A (CHASE) (Negative) Influenza Type B (CHASE) (Negative) Influenza A & B Note Medications Administered Discontinued Medications Generic Name Dose Route Start Last Admin Trade Name Freq PRN Reason Stop Dose Admin Sodium Chloride 1,000 mls @ 999 mls/hr 04/02/25 19:45 04/02/25 21:17 Ns IV 04/02/25 20:45 Infused .Q1H1M CHIARA Infusion Iohexol 100 ml 04/02/25 20:26 04/02/25 20:26 Iohexol 350 Mg/Ml 100 Ml Infus..Btl IV 04/02/25 20:27 85 ml ONCE ONE Administration Ketorolac Tromethamine 15 mg 04/02/25 19:42 04/02/25 20:09 Ketorolac Tromethamine 15 Mg/Ml Vial IVPUSH 04/02/25 19:43 15 mg ONCE ONE Administration Ondansetron HCl 4 mg 04/02/25 16:22 04/02/25 16:24 Ondansetron Odt 4 Mg Tab.Rapdis TRANSLINGU 04/02/25 16:23 4 mg ONCE ONE Administration Discharge Plan Discharge Clinical Impression: Abdominal pain, Nausea, Vomiting Patient Disposition: Home, Self-Care Instructions: Abdominal Pain (ED) Prescriptions: New pantoprazole [Protonix] 40 mg tablet,delayed release (DR/EC) 40 mg PO DAILY Qty: 14 0RF ondansetron 4 mg tablet,disintegrating 4 mg PO TID PRN (Reason: nausea and vomiting) 5 Days Qty: 10 0RF No Action metronidazole 500 mg tablet 500 mg PO TID 7 Days Qty: 21 0RF ciprofloxacin HCl 500 mg tablet 500 mg PO BID 7 Days Qty: 14 0RF sulfamethoxazole-trimethoprim [Bactrim DS] 800-160 mg tablet 1 tab PO BID 5 Days Qty: 10 0RF Referrals: Ike Burdick MD [Physician, Gastroenterology] - 04/06/25 Print Language: Czech
--- NOTE | 2025-04-02 16:22 | ECG_ITS ---
Test Reason : abdominal pain Blood Pressure : */* mmHG Vent. Rate : 111 BPM Atrial Rate : 111 BPM P-R Int : 136 ms QRS Dur : 82 ms QT Int : 334 ms P-R-T Axes : 64 80 13 degrees QTcB Int : 454 ms Sinus tachycardia Possible Left atrial enlargement Junctional ST depression, probably normal Borderline ECG No previous ECGs available Referred By: Ranjana Mar Electronically Signed By: ALYSSA CLIFFORD MD
[2025-04-02 16:57] LABS: MANUAL DIFF FLAG NO
[2025-04-02 16:59] LABS: Hematocrit 48.1 % (42.0-52.0); Hemoglobin 16.8 g/dl (14.0-18.0); Imm Gran Abs Auto 0.09 X10*3/uL (0.00-0.03); Imm Gran Pct Auto 0.4 % (0.0-0.4); Lymphocytes Absolute Auto 1.7 X10*3/uL (1.2-4.9); Mean Corpuscular HGB Conc 34.9 g/dl (31.0-36.0); Mean Corpuscular Hemoglobin 30.5 pg (27.0-33.0); Mean Corpuscular Volume 87.5 fL (80.0-98.0); NRBC Abs Auto 0.000 X10*3/uL (0.0-0.012); NRBC Pct Auto 0.0 /100WBC (0.0-0.2); Platelet Count 312 X10*3/uL (160-400); Red Blood Count 5.50 X10*6/uL (4.60-5.80); White Blood Count 20.4 X10*3/uL (4.8-10.8)
[2025-04-02 17:15] LABS: Alanine Aminotransferase 51 U/L (0-40); Albumin Level 5.3 g/dL (3.5-5.0); Alkaline Phosphatase 87 U/L (39-117); Anion Gap 18 (12-20); Aspartate Amino Transferase 39 U/L (5-37); Blood Urea Nitrogen 14 mg/dL (9-16); Calcium 9.8 mg/dL (8.4-10.2); Carbon Dioxide 31 mmol/L (22-29); Chloride 93 mmol/L (96-108); Creatinine Clr Calc Pharmacy 111.1; Estimated Glomerular Filt Rate > 60; Lipase 19 U/L (8-78); Magnesium 2.2 mg/dL (1.6-2.6); Potassium 3.3 mmol/L (3.3-5.1); Sodium 139 mmol/L (135-145); Total Protein 8.8 g/dL (6.5-8.0)
[2025-04-02 17:15] LABS: IDNOW Serial# 6674DD1D
[2025-04-02 17:16] LABS: COVID-19 Test Negative (Negative); IDNOW Serial# 08D9AD1C; Influenza B2 Negative (Negative)
[2025-04-02 17:20] LABS: Appearance Urine Clear; Glucose Urine UA Negative (Negative); PH >= 9.0 (5.0-9.0); Specific Gravity - Urine >= 1.030 (1.005-1.025); UMIC TRIGGER UACC YES
[2025-04-02 17:21] LABS: Troponin-I High Sensitivity < 2.7 ng/L (<3.5-35.0)
[2025-04-02 19:03] VITALS: BP 123/87; PULSE 96; RESP 20; TEMP 36.8; O2SAT 96
--- OUTSIDE RECORDS SUMMARY | 2025-04-02 19:36 | XMS_ITS ---
Author Name [facility] Organization Unknown Care Team Organization Name Specialty Phone Email Start Date End Da te [facility] 04/16/202201/07
--- OUTSIDE RECORDS SUMMARY | 2025-04-02 19:36 | XMS_ITS | Clinical Summary ---
[facility] Address [address] [place] [address] Care Team Providers Care Manager Relationship Name Role Phone Brock Larson MD Primary Care Provider Allergies Active Allergy Reactions Criticality Noted Date Comments Penicillin G Anaphylaxis High 11/28/2015 Medications valACYclovir (VALTREX) 500 mg tablet Take 1 Tab by mouth 3 times daily. 03/21/2016 Active Active Problems Problem Noted Date Diagnosed Date Major depression 05/26/2024 Sleep apnea 05/26/2024 Suicidal ideation 05/26/2024 Obstructive sleep apnea 02/04/2018 Overview (05/26/2024): [facility] Home Polysomnogram: Date 01/29/2018; AHI 15, Unclassified apneas 0; Obstructive apneas 14; Central apneas 0; Mixed apneas 0; hypopneas 32; average oxygen saturation 95% (lowest 87% without saturations <88% for 5% or more of study) - Obstructive Sleep Apnea - moderate; mostly hypopneas with obstructive apneas; without sleep related hypoventilation by 2018 home polysomnogram. Dyslipidemia 07/01/2017 Elevated fasting glucose 07/01/2017 Herpes 11/28/2015 Social History Tobacco Use Types Packs/Day Years Used Date Smoking Tobacco: Every Day Cigarettes Smokeless Tobacco: Never Alcohol Use Standard Drinks/Week Comments Yes 0 (1 standard drink = 0.6 oz pur e alcohol) Sex and Gender Information Value Date Recorded Sex Assigned at Not on file Legal Sex Male 12:55 PM EST Gender Identity Not on file Sexual Orientation Not on file Obstetrics History Plan of Treatment Health Maintenance Due Date Last Done Comments DTaP,Tdap,and Td Vaccines (1 - Tdap) 08/17/1999 Hepatitis A Vaccines (1 of 2 - Risk 2-dose series) 08/17/1999 Hepatitis B Vaccines (1 of 3 - 19+ 3-dose series) 08/17/1999 Pneumococcal Vaccine: Pediatrics (0 to 5 Years) and At-Risk Patients (6 to 49 Years) (1 of 2 - PCV) 08/17/1999 HPV Vaccines (1 - 3-dose SCD M series) 08/17/2007 Social Influencers of Health Screening 05/07/2022 Depression Screening 06/09/2024 COVID-19 Vaccine (1 - 2023-2 5 season) 2025 Influenza Vaccine (#1) 2025 Cholesterol Screening (Lipid Panel) 03/03/2026 03/03/2021, 07/01/2017 RSV Immunization Adult Patients (1 - 1-dose 75+ series) 08/17/2055 HIV Screening Completed 11/28/2015 Hepatitis C Screening Completed 11/28/2015 HIB Vaccines Aged Out No longer eligi ble based on patient's age to complete this topic IPV Vaccines Aged Out No longer eligi ble based on patient's age to complete this topic MMR Vaccines Aged Out No longer eligi ble based on patient's age to complete this topic Meningococcal ACWY Vaccine Aged Out N o longer eligible based on patient's age to complete this topic Meningococcal B Vaccine Aged Out No l onger eligible based on patient's age to complete this topic RSV Immunization Patients Under 20 months Aged Out No longer eligible b ased on patient's age to complete this topic Varicella Vaccines Aged Out No longer eligible based on patient's age to complete this topic Procedures Procedure Name Priority Date/Time Associated Diagnosis Comments LIPID PANEL Routine 07/01/2017 HEPATITIS C SCREENING Routine 11/28/2015 HIV SCREENING Routine 11/28/2015 from Last 3 Months or Most Recently Relevant to Health Maintenance Results * (ABNORMAL) Lipid panel (07/01/2017) LDL/HDL Ratio 4 0 - 4 Triglycerides 53 0 - 150 mg/dL Cholesterol 202(A) 0 - 200 mg/dL HDL 54 >=40 mg/dL LDL Cholesterol 138(A) 0 - 100 mg/dL Blood Venous blood specimen / Unknown Historical Provider LAB BLOOD ORDERABLES Renata l Result * HIV Screening (11/28/2015) HIV Screening Abstracted Historical Provider HEALTH MAINTENANCE Final Result * Hepatitis C Screening (11/28/2015) Hepatitis C Screening Abstracted Historical Provider HEALTH MAINTENANCE Final Result from Last 3 Months or Most Recently Relevant to Health Maintenance Care Teams Manager Relationship Relationship Specialty Start Date End Date Brock Larson MD [address] [place] [address] PCP - General 02/25/23
--- NOTE | 2025-04-02 19:45 | ED_ITS ---
HPI - Nausea/Vomiting/Diarrhea General Chief complaint: Nausea/Vomiting/Diarrhea Stated complaint: food poisoning? vomiting Time Seen by Provider: 04/02/25 19:20 Related Data Previous Rx's ?Medication ?Instructions ?Recorded ciprofloxacin HCl 500 mg tablet 500 mg PO BID 7 days # 14 tabs 08/14/21 metronidazole 500 mg tablet 500 mg PO TID 7 days #21 t abs 08/14/21 sulfamethoxazole 800 1 tab PO BID 5 days #10 tabs 04/02/23 mg-trimethoprim 160 mg tablet (Bactrim DS) ondansetron 4 mg disintegrating 4 mg PO TID PRN nausea and 04/02/25 tablet vomiting 5 days #10 tabs pantoprazole 40 mg tablet,delayed 40 mg PO DAILY #14 t abs 04/02/25 release (Protonix) Allergies Allergy/AdvReac Type Severity Reaction Status Date / Time Penicillins (PENICILLINS) Allergy Unknown HIVES Verified 04/02/25 16:22 Penicillin Allergy Unknown Hives Uncoded 04/02/23 05:16 Tylenol Allergy Unknown Anaphylaxis Uncoded 04/02/23 05:16 [facility] Social History Social History (Updated 04/07/23 @ 08:49 by Dagoberto Rodgers) Alcohol intake: current Alcohol intake frequency: a few times a month Patient Tobacco Use Status: Current everyday Tobacco user Smoked in Last 30 Days: Yes Use of substances other than those prescribed or required for medical reasons: Yes Substance Use Type: Marijuana Substance Use Frequency: Daily Any prior treatment program specific to substance use: No Advance Directives: No Advance Directives Information Provided: Yes Do you have a plan to hurt others: No Plan Current occupational status: unemployed Current occupation: right hand dominant Physical Exam 2 Vital Signs: Vital Signs: Last Vital Signs Temp 98.3 F 04/02/25 19:03 Pulse 96 04/02/25 19:03 Resp 20 04/02/25 19:03 BP 123/87 04/02/25 19:03 Pulse Ox 96 04/02/25 19:03 O2 Del Method Room Air 04/02/25 19:03 BMI result Body Mass Index 29.4 Medications Administered Discontinued Medications Generic Name Dose Route Start Last Admin Trade Name Freq PRN Reason Stop Dose Admin Sodium Chloride 1,000 mls @ 999 mls/hr 04/02/25 19:45 04/02/25 21:17 Ns IV 04/02/25 20:45 Infused .Q1H1M CHIARA Infusion Iohexol 100 ml 04/02/25 20:26 04/02/25 20:26 Iohexol 350 Mg/Ml 100 Ml Infus..Btl IV 04/02/25 20:27 85 ml ONCE ONE Administration Ketorolac Tromethamine 15 mg 04/02/25 19:42 04/02/25 20:09 Ketorolac Tromethamine 15 Mg/Ml Vial IVPUSH 04/02/25 19:43 15 mg ONCE ONE Administration Ondansetron HCl 4 mg 04/02/25 16:22 04/02/25 16:24 Ondansetron Odt 4 Mg Tab.Rapdis TRANSLINGU 04/02/25 16:23 4 mg ONCE ONE Administration Medical Decision Making Medical Decision Making MDM Narrative: Patient presents today with having nausea vomiting question vomiting of blood after multiple episodes of retching. Question secondary to Leanna-Burdick. Patient hemoglobin is 16. Better than baseline of 14. Rectal exam was done it was brown stool heme-positive. We did a CT scan of the abdomen pelvis dose no gross evidence of obstruction no abscess no perforation. There is nonspecific finding noted in the gallbladder but the ultrasound showed no evidence of gallstone. No pericholecystic fluid. Negative Chacon sign. No gallbladder wall thickening and normal common bile duct size of 4 mm. Patient in no acute distress I doubt this is secondary to biliary issues. Patient is troponin is less than 2.7. Unlikely cardiac in origin. Patient is white count is 20 likely active to distress from nausea vomiting. Given IV fluids in the emergency department symptomatically feels much improved. Tolerating p.o.. Urine showed no signs of infection. COVID flu RSV were all negative. Will discharge patient home. Will start patient on PPI. Zofran for nausea. Close follow-up on an outpatient basis. Differential Diagnosis Differential Diagnoses: The differential diagnosis associated with the presentation includes Nausea vomiting. Dehydration, GI bleed Admission/Observation Consideration of admission/observation: Escalation of care including admission/observation considered Lab Data [facility] Lab Attestation statement: I reviewed the patient's lab results. 04/02/25 16:49 04/02/25 16:49 Labs: Lab Results 04/02/25 04/02/25 04/02/25 Range/Units 16:49 16:50 16:52 WBC 20.4 H (4.8-10.8) X10*3/uL RBC 5.50 (4.60-5.80) X10*6/uL Hgb 16.8 (14.0-18.0) g/dl Hct 48.1 (42.0-52.0) % MCV 87.5 (80.0-98.0) fL MCH 30.5 (27.0-33.0) pg MCHC 34.9 (31.0-36.0) g/dl RDW 13.0 (11.0-16.0) % Plt Count 312 (160-400) X10*3/uL MPV 9.5 (9.4-12.4) fL Immature Gran % (Auto) 0.4 (0.0-0.4) % Neut % (Auto) 83.9 H (45-73) % Lymph % (Auto) 8.4 L (20-40) % [place] % (Auto) 7.2 (2-11) % Eos % (Auto) 0.0 (0-4) % Baso % (Auto) 0.1 (0-2) % Lymph # (Auto) 1.7 (1.2-4.9) X10*3/uL [place] # (Auto) 1.5 H (0.1-1.2) X10*3/uL Eos # (Auto) 0.0 (0.0-0.4) X10*3/uL Baso # (Auto) 0.0 (0.0-0.2) X10*3/uL Abs Immat Gran (auto) 0.09 H (0.00-0.03) X10*3/uL Absolute Neuts (auto) 17.1 H (2.0-8.3) x10*3/uL Absolute Nucleated RBC 0.000 (0.0-0.012) X10*3/uL Nucleated RBC % (auto) 0.0 (0.0-0.2) /100WBC Sodium 139 (135-145) mmol/L Potassium 3.3 (3.3-5.1) mmol/L Chloride 93 L (96-108) mmol/L Carbon Dioxide 31 H (22-29) mmol/L Anion Gap 18 (12-20) BUN 14 (9-16) mg/dL Creatinine 1.12 (0.5-1.4) mg/dL Estim Creat Clear Calc 111.1 Estimated GFR > 60 Random Glucose 136 H (60-115) mg/dL Calcium 9.8 (8.4-10.2) mg/dL Magnesium 2.2 (1.6-2.6) mg/dL Total Bilirubin 0.7 (0.0-1.0) mg/dL Direct Bilirubin 0.2 (0.0-0.5) mg/dL AST 39 H (5-37) U/L ALT 51 H (0-40) U/L Alkaline Phosphatase 87 (39-117) U/L Troponin I High Sens < 2.7 (<3.5-35.0) ng/L Total Protein 8.8 H (6.5-8.0) g/dL Albumin 5.3 H (3.5-5.0) g/dL Lipase 19 (8-78) U/L Urine Color Yellow Urine Appearance Clear Urine pH >= 9.0 (5.0-9.0) Ur Specific [place] >= 1.030 H (1.005-1.025) Urine Protein >=1000 (4+) H (Neg-Trace) mg/dL Urine Glucose (UA) Negative (Negative) mg/dL Urine Ketones Negative (Negative) mg/dL Urine Blood Negative (Negative) Urine Nitrite Negative (Negative) Ur Leukocyte Esterase Trace H (Negative) Urine RBC 0-2 (0-2) /HPF Urine WBC 0-5 (0-5) /HPF Ur Squamous Epith Cells 0-2 (0-2) /HPF Urine Bacteria None Seen (None Seen) Hyaline Casts 0-2 (0-2) /LPF Stool Occult Blood (NEGATIVE) COVID-19 ([facility]) Negative (Negative) COVID-19 Clin Com See Note Influenza Type A (CHASE) Negative (Negative) Influenza Type B (CHASE) Negative (Negative) Influenza A & B Note See Note 04/02/25 Range/Units 20:06 WBC (4.8-10.8) X10*3/uL RBC (4.60-5.80) X10*6/uL Hgb (14.0-18.0) g/dl Hct (42.0-52.0) % MCV (80.0-98.0) fL MCH (27.0-33.0) pg MCHC (31.0-36.0) g/dl RDW (11.0-16.0) % Plt Count (160-400) X10*3/uL MPV (9.4-12.4) fL Immature Gran % (Auto) (0.0-0.4) % Neut % (Auto) (45-73) % Lymph % (Auto) (20-40) % [place] % (Auto) (2-11) % Eos % (Auto) (0-4) % Baso % (Auto) (0-2) % Lymph # (Auto) (1.2-4.9) X10*3/uL [place] # (Auto) (0.1-1.2) X10*3/uL Eos # (Auto) (0.0-0.4) X10*3/uL Baso # (Auto) (0.0-0.2) X10*3/uL Abs Immat Gran (auto) (0.00-0.03) X10*3/uL Absolute Neuts (auto) (2.0-8.3) x10*3/uL Absolute Nucleated RBC (0.0-0.012) X10*3/uL Nucleated RBC % (auto) (0.0-0.2) /100WBC Sodium (135-145) mmol/L Potassium (3.3-5.1) mmol/L Chloride (96-108) mmol/L Carbon Dioxide (22-29) mmol/L Anion Gap (12-20) BUN (9-16) mg/dL Creatinine (0.5-1.4) mg/dL Estim Creat Clear Calc Estimated GFR Random Glucose (60-115) mg/dL Calcium (8.4-10.2) mg/dL Magnesium (1.6-2.6) mg/dL Total Bilirubin (0.0-1.0) mg/dL Direct Bilirubin (0.0-0.5) mg/dL AST (5-37) U/L ALT (0-40) U/L Alkaline Phosphatase (39-117) U/L Troponin I High Sens (<3.5-35.0) ng/L Total Protein (6.5-8.0) g/dL Albumin (3.5-5.0) g/dL Lipase (8-78) U/L Urine Color Urine Appearance Urine pH (5.0-9.0) Ur Specific [place] (1.005-1.025) Urine Protein (Neg-Trace) mg/dL Urine Glucose (UA) (Negative) mg/dL Urine Ketones (Negative) mg/dL Urine Blood (Negative) Urine Nitrite (Negative) Ur Leukocyte Esterase (Negative) Urine RBC (0-2) /HPF Urine WBC (0-5) /HPF Ur Squamous Epith Cells (0-2) /HPF Urine Bacteria (None Seen) Hyaline Casts (0-2) /LPF Stool Occult Blood POSITIVE (NEGATIVE) COVID-19 ([facility]) (Negative) COVID-19 Clin Com Influenza Type A (CHASE) (Negative) Influenza Type B (CHASE) (Negative) Influenza A & B Note Independent Interpretation I performed an independent interpretation of an: CT Scan (No overt obstruction) Radiology Impression Discussion of test interpretation with radiology: I have reviewed the radiologist's reading. Prescription Management I considered prescription management with: Antiviral and Antibiotic Social Determinants Patient?s care significantly limited by Social Determinants of Health including: Problems related to primary support group Discharge Plan Discharge Clinical Impression: Abdominal pain, Nausea, Vomiting Patient Disposition: Home, Self-Care Instructions: Abdominal Pain (ED) Prescriptions: New pantoprazole [Protonix] 40 mg tablet,delayed release (DR/EC) 40 mg PO DAILY Qty: 14 0RF ondansetron 4 mg tablet,disintegrating 4 mg PO TID PRN (Reason: nausea and vomiting) 5 Days Qty: 10 0RF No Action metronidazole 500 mg tablet 500 mg PO TID 7 Days Qty: 21 0RF ciprofloxacin HCl 500 mg tablet 500 mg PO BID 7 Days Qty: 14 0RF sulfamethoxazole-trimethoprim [Bactrim DS] 800-160 mg tablet 1 tab PO BID 5 Days Qty: 10 0RF Referrals: Ike Burdick MD [Physician, Gastroenterology] - 04/06/25 Print Language: Bol[place]ian
[2025-04-02 20:12] LABS: OBS Int Ctl Valid YES
[2025-04-02 20:14] LABS: OBS1 POSITIVE (NEGATIVE)
[2025-04-02] MEDS: iohexoL 350 MG/ML 100 ML INFUS..BTL IV (20:26)
[2025-04-02 23:23] VITALS: BP 129/72; PULSE 93; RESP 16; TEMP 36.9; O2SAT 97
== END 2025-04-02 23:20 | disposition home or self-care (01) ==
PROVIDERS: Physician Assistant; Emergency Provider Emergency Medicine Emergency Medical Services
DX: R10.9 Unspecified abdominal pain (principal); R10.13 Epigastric pain; R11.2 Nausea with vomiting, unspecified; R19.7 Diarrhea, unspecified; Z03.818 Encounter for observation for suspected exposure to other biological agents ruled out
CPT/HCPCS: 36415; 74177; 76705; 80048; 80076; 81001; 82272; 83690; 83735; 84484; 85025; 87502; 87635; 93005; 96361; 96374; 99285; J1885; Q9967

== ENCOUNTER → 2025-04-02 16:22 | Outpatient (BNV) | payer OTHER, SELFPAY | PROVIDERS: Emergency Provider Emergency Medicine Emergency Medical Services; Visit Provider Internal Medicine Cardiovascular Disease | DX: R00.0 Tachycardia, unspecified (principal) | CPT/HCPCS: 93010 ==

== ENCOUNTER → 2025-04-02 16:23 | Outpatient (BNV) | payer OTHER, SELFPAY | PROVIDERS: Visit Provider Radiology Diagnostic Radiology | DX: N32.89 Other specified disorders of bladder (principal); K76.0 Fatty (change of) liver, not elsewhere classified; R16.0 Hepatomegaly, not elsewhere classified | CPT/HCPCS: 74177; 76705 ==